=== PATIENT | female | born 1965 | race Caucasian/White ===

== ENCOUNTER 2017-09-17 05:59 | Day surgery (SDC) | payer OTHER ==
[2017-09-17] MEDS ORDERED: fentaNYL 100 MCG/2 ML SDV IV ONE ×3 (06:00→07:03)
[2017-09-17] MEDS ORDERED: Sodium Chloride 0.9% 10 ML Syringe FLUSH PRN (06:00)
[2017-09-17] MEDS ORDERED: Dextrose 5%-0.45% NaCl 1,000 ML IV SCH (06:00)
[2017-09-17] MEDS ORDERED: Midazolam 1 MG/ML 2 ML SDV IV ONE ×7 (06:00→07:13)
[2017-09-17] MEDS ORDERED: Midazolam 1 MG/ML 2 ML SDV ONE (06:15)
[2017-09-17] MEDS ORDERED: fentaNYL 100 MCG/2 ML SDV ONE (06:15)
[2017-09-17] MEDS ORDERED: Sodium Chloride 0.9% 250 ML IV SCH (07:32)
--- NOTE | 2017-09-17 11:34 | OR ---
DATE: 09/17/2017 PROCEDURES: Total colonoscopy, narrow-band imaging, and multiple polypectomies. INSTRUMENT USED: CF-H180 AL Olympus video colonoscope. PREMEDICATIONS: Fentanyl 100 mcg intravenous, Versed 4 mg intravenous. Nasal O2 cannula. The procedure was done under pulse oximetry, BP recording, and manager star. INDICATION: The patient with rectal bleeding. Colonoscopic examination is done for detection of any polypoid lesions and removal, endoscopic hemostasis therapy if needed. DESCRIPTION OF PROCEDURE: Initial rectal exam showed external hemorrhoidal tags. Rigid anoscopy was normal. The colonoscope was passed with relative ease up to the ileocecal area. Photographs were taken of the normal-appearing cecum, identified by landmarks of appendiceal orifice and double-bulged ileocecal folds. No bleeding was noted from any of the visualized areas at the commencement of the examination. No stricture. No vascular ectasia. No large isolated ulcerations seen. No evidence of diffuse inflammatory bowel disease in the form of friability, contact bleeding, or ulcerations. In the mid ascending colon, a 1-cm sized benign-appearing sessile polyp was noted. NBI views were obtained. Photographs were taken. Piecemeal polypectomy was done, and the tissue was retrieved, was sent for histopathology. Nearby, another 3-mm sized benign-appearing polyp was noted. Cold snare polypectomy was done. The tissue was retrieved and sent for histopathology. Probing the proximal sides of folds and flexures using adequate distention and clearing up the stool material, withdrawal of the scope was made. No bleeding was noted from any of the visualized areas at the completion of examination. IMPRESSION: 1. External hemorrhoids. 2. Ascending colon polyps. The patient tolerated the procedure well. [facility] /[id number]
== END 2017-09-17 09:33 | disposition home or self-care (01) ==
LOC: DL.ENDO 05:59
PROVIDERS: ATTEND Internal Medicine Gastroenterology
DX: D12.5 Benign neoplasm of sigmoid colon (principal); K64.4 Residual hemorrhoidal skin tags; F17.210 Nicotine dependence, cigarettes, uncomplicated; Z90.49 Acquired absence of other specified parts of digestive tract; Z98.51 Tubal ligation status
CPT/HCPCS: 45380; J2250; J3010; J7042; J7050